=== PATIENT | male | born 1980 | race Caucasian/White ===

== ENCOUNTER → 2021-08-22 | Outpatient (REF) | LOC: M LABSMTC 09:48 | PROVIDERS: ATTEND Pediatrics | DX: Z11.52 Encounter for screening for COVID-19 (principal) ==

== ENCOUNTER 2022-10-28 07:07 | Day surgery (SDC) | payer OTHER ==
[~2022-10-28] VITALS: Ht 177.8 cm; Wt 91.1 kg
[~2022-10-28 07:07] MED LIST: ADDE30CA3 PO; NS 1,000 ML IV ONE; SILD50TA2 PO
[2022-10-28] MEDS ORDERED: LIDOCAINE 2% 100MG/5ML SDV (FOR ANES.) As Ordered ONE (07:46)
[2022-10-28] MEDS ORDERED: propofoL 200 MG/20 ML VIAL As Ordered ONE (07:46)
[2022-10-28 08:50] VITALS: BP 119/58
== END 2022-10-28 08:51 | disposition home or self-care (01) ==
LOC: M OPP 07:07
PROVIDERS: ATTEND Internal Medicine Gastroenterology
DX: K64.0 First degree hemorrhoids (principal); K62.89 Other specified diseases of anus and rectum; Z79.899 Other long term (current) drug therapy